=== PATIENT | female | born 1950 | race Caucasian/White ===

== ENCOUNTER 2025-07-28 13:44 | Emergency (ER) | payer MEDICARE, BC, SELFPAY ==
[2025-07-28] VITALS (31 sets, daily range): BP systolic 115–149; BP diastolic 58–97; PULSE 70–81; RESP 10–20; TEMP 36.7; O2SAT 93–99
--- NOTE | 2025-07-28 14:16 | ED.GENADUL_ITS ---
Discharge Plan Disposition Patient Disposition: Home Condition: Stable Discharge Details Clinical Impression: Seizure Primary Care Provider: Herlinda,Local ED Provider: Aixa Pandey Discharge Instructions Instructions: Seizures Additional Instructions: You were seen in the emergency department today for evaluation after experiencing seizures in the setting of not having your seizure prevention medicines. In our department he had a full physical examination performed and had laboratory studies that were quite reassuring. We provided you with your dose of seizure medication here in the emergency department and observed you to ensure that you did not have any more seizure activity. The medication that you are on, if you were ever to stop it, should be tapered off gradually, as sudden stops like the 1 that you did during this trip can cause increasing seizure activity. You should reinitiate your prior dose of seizure medication, you received a dose today and I have sent you home with a dose to take tomorrow in case you are not yet back in your home. Please maintain good hydration and nutrition and use Excedrin as needed to manage headaches. Please note that you received Tylenol and Excedrin here in our emergency department, and should limit your intake of Tylenol for the remainder of the day. Please follow-up with your primary care provider in the next few days to discuss this visit and any symptoms that change, worsen, or persist. Thank you for allowing us to be part of your care. Discharge Data Discharge Date/Time-TO BE ENTERED AT DEPARTURE: 07/28/25 17:08 HPI General Mode of arrival: ambulatory . Date/Time Provider Initiated Documentation: 07/28/25 13:46 . Limitations to Documentation: no limitations . Information obtained by: patient, family and old records reviewed . HPI Narrative: This is a 75-year-old female patient with a past medical history significant for epilepsy and hypertension who is presenting for evaluation after experiencing 3 seizures. She and her family are traveling from [facility], and she forgot her seizure medications at home. She is takes primidone 550 mg daily, states that her last dose was on Wednesday night. Today, she had a seizure in the shower, typical characteristics for her baseline seizures, though she has not had a seizure in several years. The patient reports that she has a frontal headache but does not think that she hit her head, did not have any bruising, neck pain, or other evidence of injury. They were going for a drive and the patient had 2 additional seizures while seated in the car lasting approximately 1 minute each. She was postictal after these events, the patient's family member reports that they had initially planned to drive home to go get her medicines but elected to come to this department instead. The patient reports that she has a mild headache located right between her eyes, and feels very weak and fatigued. She denies new numbness, tingling, or weakness. Is not experiencing severe vision changes, chest pain, shortness of breath, or abdominal pain. She did have some nausea but no vomiting after her seizure. General Stated Complaint: Seizure IGNACIO: 3 Exam Narrative Exam Narrative: Gen: awake and alert, in no apparent distress. Appears fatigued HEENT: PERRL, EOMs full and without nystagmus. External ears and nose normal, mucous membranes moist. Neck: Supple, full range of motion, no observable masses Lungs: No increased work of breathing, lung sounds clear and equal bilaterally without wheezes, rhonchi, or rales. CV: Heart with regular rate and rhythm, no murmurs auscultated. Strong and symmetrical radial pulses. Abdomen: Soft, nondistended, non-tender to palpation. No rigidity, rebound tenderness, or guarding. MSK: No joint swelling, no redness. Full ROM without limitation, no external traumatic findings. Skin: No rashes or lesions to visualized skin. Normal color, warm, and dry. Neuro: Cranial nerves II-XII intact and symmetrical bilaterally. 5/5 strength in all muscle groups x4 extremities. No sensory deficits. Psych: Appropriate for situation. Course Vital Signs Vital signs: Vital Signs Temperature 36.7 C 07/28/25 13:54 Pulse 77 07/28/25 13:54 Respiratory Rate 20 07/28/25 13:54 Blood Pressure 144/86 H 07/28/25 13:54 Pulse Oximetry 93 07/28/25 13:54 Temperature 36.7 C 07/28/25 13:54 Temperature Source Oral 07/28/25 13:54 Pulse 77 07/28/25 13:54 Respiratory Rate 20 07/28/25 13:54 Blood Pressure 144/86 H 07/28/25 13:54 Blood Pressure Position Sitting 07/28/25 13:54 Pulse Oximetry 93 07/28/25 13:54 Oxygen Delivery Method Room Air 07/28/25 13:54 Oxygen Flow Rate 0 07/28/25 13:54 Pain Level 0 07/28/25 13:54 Medical Decision Making This is a 75-year-old female patient presenting for evaluation of seizures. Differential includes but is not limited to recurrence of seizures in the absence of medications (primidone specifically notes that medication should be tapered to avoid increased seizure frequency with cessation of medication), certainly considered metabolic and electrolyte derangements including hypoglycemia, sodium abnormalities, dehydration, kidney or liver disease. The patient reassuringly does not have evidence of severe trauma to suggest intracranial injury such as hemorrhage, skull fracture, nor evidence of spine or spinal cord injury. She has no focal neurodeficits to suggest Herminio's paralysis, intracranial mass effect or stroke. The patient has reassuring vital signs, we will obtain labs to include CBC, CMP, magnesium, and I will provide the patient with a dose of her primidone, 550 mg, as well as Tylenol and Zofran for symptomatic management. - I independently interpreted the laboratory studies, which show no significant leukocytosis, anemia, or thrombocytopenia. The chemistry panel is without evidence of electrolyte abnormality, kidney dysfunction, or liver injury. The patient was observed in the emergency department and did not have any subsequent seizure activity. The patient had improvement in her nausea, requested Excedrin for headaches which was provided. I did recreation counselor her to avoid excessive Tylenol intake over the next 24 hours and monitor her total dosing of Tylenol. I provided the patient and her family with a take-home dose of her primidone in case they are unable to get home in time for her to take her dose tomorrow. Given the short duration off of the medicine I recommend that they resume her medication as previously prescribed. At this time, the patient has had a full medical evaluation and is safe for discharge to home. They are hemodynamically stable, ambulatory, and tolerating PO. They are understanding of the follow-up plan and return precautions. They left our facility without incident. Aixa Pandey MD [facility], [facility] All Active Problems (Updated 07/28/25 @ 15:54 by Aixa Pandey MD) Seizure (Acute) Social History Smoking risk assessment performed?: No
[2025-07-28] MEDS: Ondansetron 4 MG/2 ML VIAL IVP (14:33)
[2025-07-28] MEDS: Acetaminophen 500 MG TAB 1000 MG PO (14:33)
[2025-07-28 14:39] LABS: Abs Immature Grans 0.04 10^3/uL (0.0-0.06); HCT 41.9 % (36.0-46.0); HGB 14.0 g/dL (11.2-15.7); Immature Grans % 0.4 %; MCH 30.9 pg (27.0-33.0); MCHC 33.4 % (32.0-36.0); MCV 93 fL (80-95); MPV 9.7 fL (8.0-11.0); Platelet Count 266 10^3/uL (130-400); RBC 4.53 10^6/uL (3.93-5.22); RDW 12.9 % (11.7-14.6); RDW-SD 44.2 fL; WBC 11.08 10^3/uL (4.4-10.8)
[2025-07-28 14:48] LABS: ALT 23 U/L (14-59); AST 19 U/L (15-37); Albumin 4.1 g/dL (3.4-5.0); Alkaline Phosphatase 136 U/L (46-116); Anion Gap 9.3 mmol/L (3-11); BUN 14 mg/dL (7-18); Bilirubin, Total 0.3 mg/dL (0.2-1.0); CO2 26.7 mmol/L (21.0-32.0); Calcium 8.7 mg/dL (8.5-10.1); Chloride 103 mmol/L (98-107); Estimated GFR 91.26 (mL/min/1.73m2); Glucose 146 mg/dL (74-106); Magnesium 1.9 mg/dL (1.8-2.4); Potassium 3.7 mmol/L (3.5-5.1); Sodium 139 mmol/L (136-145); Total Protein 7.9 g/dL (6.4-8.2)
[2025-07-28] MEDS: Primidone 250 MG TAB 550 MG PO ×2 (15:50→16:57)
[2025-07-28] MEDS: Acetaminophen 250 mg/Aspirin 250 mg/Caffeine 65 mg TAB 2 EACH PO (16:57)
== END 2025-07-28 17:08 | disposition home or self-care (01) ==
PROVIDERS: Emergency Provider Emergency Medicine
DX: R56.9 Unspecified convulsions (principal)
CPT/HCPCS: 36416; 80053; 82962; 96374; 99284; 83735; 85025; J2405